=== PATIENT | male | born 2000 | race Caucasian/White ===

== ENCOUNTER 2018-06-30 18:18 | Emergency (ER) | payer SELFPAY ==
[2018-06-30] MEDS ORDERED: HYDROCODONE/ACETAMINOPHEN 5-325 MG TABLET PO ONE (19:42)
[2018-06-30] MEDS ORDERED: DIPH/PERTUSS(ACELL)/TETANUS VAC/PF 0.5 ML SYR (>=10YO) IM ONE (19:42)
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
--- NOTE | 2018-06-30 20:28 | RADIOLOGY REPORT (SQ) ---
2 VIEWS OF THE THORACIC SPINE HISTORY: Back pain. COMPARISON: None. FINDINGS: No acute compression fracture is seen. There is normal alignment without subluxation. The disc spaces are preserved. IMPRESSION: No acute compression fracture of the thoracic spine is seen. However, please note that if there is point tenderness or high clinical concern, a CT scan is recommended.
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
--- NOTE | 2018-06-30 20:49 | RADIOLOGY REPORT (SQ) ---
CT CERVICAL SPINE WITHOUT IV CONTRAST HISTORY: Neck pain. COMPARISON: None. TECHNIQUE: CT scan of the cervical spine without IV contrast. This exam was performed according to our departmental dose-optimization program, which includes automated exposure control, adjustment of the mA and/or kV according to patient size and/or use of iterative reconstruction technique. FINDINGS: No acute cervical fracture or prevertebral soft tissue swelling is seen. There is straightening of the normal cervical lordosis, which may be due to cervical collar, muscle spasm, or patient positioning. The facet joints and disc spaces are preserved. No advanced canal stenosis is identified. There is a 0.8 x 1.3 cm hypodense nodule in the right thyroid lobe as well as a 7 mm calcified nodule in the left thyroid lobe. IMPRESSION: 1. No acute fracture or subluxation of the cervical spine. 2. 1.3 cm incidental thyroid nodule. Recommend thyroid US. Reference: J Am Odette Radiol. 2015 b;12(2): 143-50
[2018-06-30 21:28] VITALS: BP 127/90
== END 2018-06-30 21:27 | disposition home or self-care (01) ==
LOC: ER 18:18
DX: S63.501A Unspecified sprain of right wrist, initial encounter (principal); S23.3XXA Sprain of ligaments of thoracic spine, initial encounter; S16.1XXA Strain of muscle, fascia and tendon at neck level, initial encounter; V13.9XXA Unspecified pedal cyclist injured in collision with car, pick-up truck or van in traffic accident, initial encounter; E04.1 Nontoxic single thyroid nodule; M54.2 Cervicalgia; M25.531 Pain in right wrist; M54.9 Dorsalgia, unspecified
CPT/HCPCS: 99284; 90471; 72070; 73110; 72125; 90715; L3908

== ENCOUNTER 2019-05-05 15:44 | Emergency (ER) | payer SELFPAY ==
--- NOTE | 2019-05-05 17:05 | ER Document Report ---
ED General - General Chief Complaint: Chest Pain Stated Complaint: CHEST PAIN Time Seen by Provider: 05/05/19 17:03 Mode of Arrival: Ambulatory Information source: Patient TRAVEL OUTSIDE OF THE [place] IN LAST 30 DAYS: No - HPI Onset: Other - earlier in the day Onset/Duration: Sudden Quality of pain: Sharp Severity: Moderate Pain Level: 3 Associated symptoms: Other - pain with taking deep breaths Exacerbated by: Other - taking a deep breath Relieved by: Remaining still, Other - holding his hand over the area that hurts Similar symptoms previously: No Recently seen / treated by doctor: No Notes: 19 year old male with no known PMH here for lower mid chest pain (over the Sternum and Xiphoid Process) which started out of the blue when running. The patient noticed the pain mid run and he had to stop. The patient says it now hurts to take a deep breath. Holding pressure on his chest with his hand seems to make the pain better. The patient denies direct trauma to his chest but he thinks he could have pulled something when running. The patient denies recent fevers, chills, sweats, nausea, vomiting, congestion, sore throat, cough. - Related Data Allergies/Adverse Reactions: Cephalosporins Allergy (Verified 07/01/18 04:41) Penicillins Allergy (Verified 07/01/18 04:41) Past Medical History - General Information source: Patient - Social History Smoking Status: Never Smoker Chew tobacco use (# tins/day): No Drug Abuse: None Lives with: Family Family History: Reviewed & Not Pertinent Patient has suicidal ideation: No Patient has homicidal ideation: No Renal/ Medical History: Denies: Hx Peritoneal Dialysis Psychiatric Medical History: Reports: Hx Attention Deficit Hyperactivity Disorder Review of Systems - Review of Systems Constitutional: No symptoms reported. denies: Chills, Diaphoresis, Fever EENT: No symptoms reported Cardiovascular: Chest pain Respiratory: Hurts to breathe, Other - pain with taking deep breaths. denies: Cough Gastrointestinal: No symptoms reported Genitourinary: No symptoms reported Male Genitourinary: No symptoms reported Musculoskeletal: No symptoms reported Skin: No symptoms reported Hematologic/Lymphatic: No symptoms reported Neurological/Psychological: No symptoms reported -: Yes All other systems reviewed and negative Physical Exam - Vital signs Vitals: Temp Resp BP Pulse Ox 97.6 F 16 128/86 H 98 05/05/19 16:14 05/05/19 16:14 05/05/19 16:14 05/05/19 16:14 - Notes Notes: GENERAL: Well-appearing, well-nourished and in no acute distress. HEAD: Atraumatic, normocephalic. EYES: Pupils equal round and reactive to light, extraocular movements intact, sclera anicteric, conjunctiva are normal. ENT: TMs normal, nares patent, oropharynx clear without exudates. Moist mucous membranes. NECK: Normal range of motion, supple without lymphadenopathy or JVD. LUNGS: Breath sounds clear to auscultation bilaterally and equal. No wheezes rales or rhonchi. HEART: Tender over lower anterior chest (mostly over sternum/xiphoid process area) with no palpable deformity. Regular rate and rhythm without murmurs, rubs or gallops. ABDOMEN: Soft, nontender, normoactive bowel sounds. No guarding, no rebound. No masses appreciated. EXTREMITIES: Normal range of motion, no pitting or edema. No clubbing or cyanosis. NEUROLOGICAL: Cranial nerves II through XII grossly intact. Normal speech, normal gait. PSYCH: Normal mood, normal affect. SKIN: Warm, Dry, normal turgor, no rashes or lesions noted. Course - Re-evaluation Re-evalutation: 05/05/19 18:18 The patient is here for chest pain which started while running. His chest pain is reproducible with palpation and taking deep breaths. It sounds like he could have pulled a muscle while running. The patient had a normal chest xray and normal EKG. Patient is PERC negative making PE unlikely and he has no risk factors for ACS. Patient told to use Motrin and Tylenol and follow up with a PCP. Patient was brought to a droplet precaution room since he told triage he may have been exposed to COVID19.Droplet precautions were taken but my suspicion for an acute infection is very low. - Vital Signs Vital signs: Temp Pulse Resp BP Pulse Ox 97.6 F 15 128/86 H 97 05/05/19 16:14 05/05/19 16:15 05/05/19 16:14 05/05/19 16:15 - Diagnostic Test Radiology reviewed: Image reviewed, Reports reviewed - EKG Interpretation by Me EKG shows normal: Sinus rhythm, [place], Intervals, QRS Complexes Rate: Normal Rhythm: NSR Discharge - Discharge Clinical Impression: Chest pain Qualifiers: Chest pain type: unspecified Qualified Code(s): R07.9 - Chest pain, unspecified Condition: Stable Disposition: HOME, SELF-CARE Instructions: Chest Wall Pain ([facility]), Chest Pain of Unclear Cause ([facility]) Additional Instructions: Use Tylenol and Motrin for chest wall pain. Follow up with a primary care doctor. If you dont have a primary care doctor, call the numbers listed your paperwork. Seek medical attention for trouble breathing, shortness of breath, or if worse.
[2019-05-05] MEDS ORDERED: NAPROXEN 250 MG TABLET PO ONE (17:25)
--- NOTE | 2019-05-05 17:53 | RADIOLOGY REPORT (SQ) ---
EXAM DESCRIPTION: CHEST SINGLE VIEW COMPLETED DATE/TIME: 05/05/2019 5:35 pm REASON FOR STUDY: chest pain COMPARISON: None. TECHNIQUE: Single frontal radiographic view of the chest acquired. NUMBER OF VIEWS: One view. LIMITATIONS: None. FINDINGS: LUNGS AND PLEURA: No pneumothorax. No consolidation or pleural effusion. MEDIASTINUM AND HILAR STRUCTURES: No contour abnormalities. HEART AND VASCULAR STRUCTURES: Heart normal size. BONES: No acute findings. HARDWARE: None in the chest. OTHER: No other significant finding. IMPRESSION: NO ACUTE FINDINGS. TECHNICAL DOCUMENTATION: JOB ID: [id number] [place]-72 2010 [employer]- All Rights Reserved Reading location - IP/workstation name: [email or web address]
[2019-05-05 19:15] VITALS: BP 113/73
--- NOTE | 2019-05-05 21:38 | EKG REPORT ---
SEVERITY:- ABNORMAL ECG - SINUS ARRHYTHMIA, RATE 54-87 ST ELEVATION SUGGESTS NORMAL VARIANT : Confirmed by: Michael Rodriguez MD 05-May-2019 21:37:12
== END 2019-05-05 19:22 | disposition home or self-care (01) ==
LOC: ER 15:44
DX: R07.9 Chest pain, unspecified (principal); Z88.0 Allergy status to penicillin
CPT/HCPCS: 71045; 93005; 93010; 99285